=== PATIENT | male | born 2005 | race Caucasian/White ===

== ENCOUNTER 2025-02-28 04:51 | Emergency (ER) | payer BC, MEDICAID ==
[2025-02-28 05:08] LABS: BASOPHILS ABSOLUTE AUTO 0.03 K/uL (0.00-0.10); BASOPHILS PERCENT AUTO 0.4 % (0.1-1.3); EOSINOPHILS ABSOLUTE AUTO 0.11 K/uL (0.00-0.40); EOSINOPHILS PERCENT AUTO 1.3 % (0.0-5.4); HEMATOCRIT 45.3 % (38.4-49.7); HEMOGLOBIN 15.5 g/dL (12.9-16.9); IMMATURE GRAN PERCENT AUTO 0.2 % (0.0-0.7); LYMPHOCYTES ABSOLUTE AUTO 3.04 K/uL (0.8-3.3); LYMPHOCYTES PERCENT AUTO 36.9 % (11.4-47.7); MEAN CORPUSCULAR HEMOGLOBIN 29.8 pg (31.6-35.5); MEAN CORPUSCULAR HGB CONC 34.2 g/dL (31.6-35.5); MEAN CORPUSCULAR VOLUME 86.9 fL (81.4-99.0); MONOCYTES ABSOLUTE AUTO 0.57 K/uL (0.20-0.90); MONOCYTES PERCENT AUTO 6.9 % (3.3-12.6); NEUTROPHILS ABSOLUTE AUTO 4.46 K/uL (1.0-7.6); NEUTROPHILS PERCENT AUTO 54.3 % (40.0-78.1); PLATELET COUNT,PLT 328 K/uL (130-375); RED BLOOD CELL COUNT 5.21 M/uL (4.14-5.76); WHITE BLOOD CELL COUNT,WBC 8.2 K/uL (3.2-11.0)
[2025-02-28 05:11] LABS: IMMATURE GRAN ABSOLUTE AUTO 0.02 K/uL (0.00-0.23)
[2025-02-28 05:31] LABS: A/G RATIO 1.2 (1.2-2.2); ALANINE AMINOTRANSFERASE,ALT 40 U/L (12-78); ALKALINE PHOSPHATASE 152 U/L (46-116); ANION GAP 12.9 mmol/L (5.0-14.0); ASPARTATE AMNIOTRANSFERASE,AST 17 U/L (15-37); BILIRUBIN TOTAL 0.4 mg/dL (0.2-1.0); BLOOD UREA NITROGEN,BUN 16 mg/dL (7-18); CARBON DIOXIDE,CO2 24 mmol/L (21-32); CHLORIDE,CL 104 mmol/L (100-108); CREATININE 1.2 mg/dL (0.8-1.3); ESTIMATED GFR 89 mL/min (>60); GLUCOSE RANDOM 105 mg/dL (74-106); POTASSIUM,K 4.1 mmol/L (3.6-5.2); PROTEIN TOTAL,TP 7.4 g/dL (6.4-8.2); SODIUM,NA 141 mmol/L (140-148)
[2025-02-28 05:35] LABS: CALCIUM 8.9 mg/dL (8.5-10.1)
[2025-02-28 08:58] LABS: AMPHETAMINES SCREEN, URINE NEGATIVE (NEGATIVE); BARBITURATE SCREEN,URINE NEGATIVE (NEGATIVE); BENZODIAZEPINES SCREEN,URINE NEGATIVE (NEGATIVE); METHADONE SCREEN, URINE NEGATIVE (NEGATIVE); METHAMPHETAMINES SCREEN, URINE NEGATIVE (NEGATIVE); OXYCODONE SCREEN,URINE NEGATIVE (NEGATIVE); PROPOXYPHENE SCREEN,URINE NEGATIVE (NEGATIVE); THC SCREEN,URINE 50 NG/ML NEGATIVE (NEGATIVE)
== END 2025-02-28 15:25 ==
LOC: JP.ED 04:51
DX: T44.7X2A Poisoning by beta-adrenoreceptor antagonists, intentional self-harm, initial encounter (principal); T43.592A Poisoning by other antipsychotics and neuroleptics, intentional self-harm, initial encounter; T43.292A Poisoning by other antidepressants, intentional self-harm, initial encounter; T43.222A Poisoning by selective serotonin reuptake inhibitors, intentional self-harm, initial encounter; Z79.899 Other long term (current) drug therapy
CPT/HCPCS: 36415; 80053; 80143; 80179; 80305-QW; 80307; 85025; 93005; 99285; U0002